=== PATIENT | male | born 1945 | race Caucasian/White ===

== ENCOUNTER 2016-06-20 12:15 | Emergency (ER) | payer MEDICARE, OTHER ==
[~2016-06-20] VITALS: Ht 172.7 cm; Wt 86.0 kg
[2016-06-20 12:39] VITALS: BP 180/88; PULSE 75; RESP 16; TEMP 98.4; O2SAT 97
[2016-06-20 13:15] LABS: AUTOMATED NEUTROPHIL # 3.6 TH/MM3 (1.8-7.7); BASOPHIL % 0.5 % (0.0-2.0); EOSINOPHIL # 0.2 TH/MM3 (0-0.4); EOSINOPHIL % 2.8 % (0.0-4.0); HEMATOCRIT 43.9 % (39.0-51.0); HEMO FLAGS DIFF FINAL; LYMPH % 25.2 % (9.0-44.0); LYMPHOCYTE # 1.5 TH/MM3 (1.0-4.8); MEAN CELL VOLUME 91.4 FL (80.0-100.0); MEAN CORPUSCULAR HEMOGLOBIN 30.4 PG (27.0-34.0); MEAN CORPUSCULAR HGB CONC 33.3 % (32.0-36.0); NEUT % 58.5 % (16.0-70.0); PLATELET COUNT 188 TH/MM3 (150-450); RED CELL DISTRIBUTION WIDTH 12.8 % (11.6-17.2); WHITE BLOOD COUNT 6.1 TH/MM3 (4.0-11.0)
[2016-06-20 13:26] LABS: CHLORIDE 102 MEQ/L (98-107); SODIUM (NA) 139 MEQ/L (136-145)
[2016-06-20 13:28] LABS: ANION GAP 8 MEQ/L (5-15); BICARBONATE 29.4 MEQ/L (21.0-32.0); BLOOD UREA NITROGEN 16 MG/DL (7-18)
[2016-06-20 13:32] LABS: GLOMERULAR FILTRATION RATE 80 ML/MIN (>89)
[2016-06-20 13:45] VITALS: BP 186/82; PULSE 63; RESP 16; O2SAT 95
--- NOTE | 2016-06-20 13:59 | PD ---
HPI Chief Complaint: Dizziness Time Seen by Provider: 12:43 Travel History International Travel<30 days: No Contact w/Intl Traveler<30days: No Traveled to known affect area: No History of Present Illness HPI 70yo M with PMH of HTN presents to the ED with c/o feeling unsteady and lightheaded for a few days. Pt states when he walks, he feels that he will fall but does not. Denies any fever, visual changes, chest pain, sob, n/v, abdominal pain, focal weakness or numbness. PFSH Past Medical History Cardiovascular Problems: Yes (HTN) High Cholesterol: Yes Chemotherapy: No Cerebrovascular Accident: No Diabetes: No Diminished Hearing: No Hypertension: Yes Respiratory: No Tetanus Vaccination: > 5 Years Past Surgical History Joint Replacement: Yes Tonsillectomy: Yes Social History Alcohol Use: Yes (BEER, OCCASIONALLY; 3 BEERS 06/17/16) Tobacco Use: No (QUIT ) Substance Use: No Allergies-Medications (Allergen,Severity, Reaction): Coded Allergies: No Known Allergies (Unverified , 06/20/16) Review of Systems Except as stated in HPI: all other systems reviewed are Neg Physical Exam Narrative GENERAL: 70yo M not in distress. SKIN: Warm and dry. HEAD: Atraumatic. Normocephalic. EYES: Pupils equal and round. No nystagmus. EOMI. No scleral icterus. No injection or drainage. ENT: +Cerumen in bilateral ears. Unable to visualize TM. No nasal bleeding or discharge. Mucous membranes pink and moist. NECK: Trachea midline. No JVD. CARDIOVASCULAR: Regular rate and rhythm. No murmur appreciated. RESPIRATORY: No accessory muscle use. Clear to auscultation. Breath sounds equal bilaterally. GASTROINTESTINAL: Abdomen soft, non-tender, nondistended. Hepatic and splenic margins not palpable. MUSCULOSKELETAL: No obvious deformities. No clubbing. No cyanosis. No edema. NEUROLOGICAL: Awake and alert. No obvious cranial nerve deficits. Motor grossly within normal limits. Normal speech. PSYCHIATRIC: Appropriate mood and affect; insight and judgment normal. Data Data Last Documented VS Vital Signs Date Time Temp Pulse Resp B/P Pulse Ox O2 Delivery O2 Flow Rate FiO2 06/20/16 13:45 63 16 186/82 95 Room Air 06/20/16 12:39 98.4 Orders Complete Blood Count With Diff (06/20/16 13:03) Basic Metabolic Panel (Bmp) (06/20/16 13:03) Troponin I (06/20/16 13:03) Ct Brain W/O Iv Contrast(Rout) (06/20/16 ) Labs Laboratory Tests Test 06/20/16 13:10 White Blood Count 6.1 TH/MM3 Red Blood Count 4.80 MIL/MM3 Hemoglobin 14.6 GM/DL Hematocrit 43.9 % Mean Corpuscular Volume 91.4 FL Mean Corpuscular Hemoglobin 30.4 PG Mean Corpuscular Hemoglobin 33.3 % Concent Red Cell Distribution Width 12.8 % Platelet Count 188 TH/MM3 Mean Platelet Volume 6.2 FL Neutrophils (%) (Auto) 58.5 % Lymphocytes (%) (Auto) 25.2 % Monocytes (%) (Auto) 13.0 % Eosinophils (%) (Auto) 2.8 % Basophils (%) (Auto) 0.5 % Neutrophils # (Auto) 3.6 TH/MM3 Lymphocytes # (Auto) 1.5 TH/MM3 Monocytes # (Auto) 0.8 TH/MM3 Eosinophils # (Auto) 0.2 TH/MM3 Basophils # (Auto) 0.0 TH/MM3 CBC Comment DIFF FINAL Differential Comment Sodium Level 139 MEQ/L Potassium Level 4.0 MEQ/L Chloride Level 102 MEQ/L Carbon Dioxide Level 29.4 MEQ/L Anion Gap 8 MEQ/L Blood Urea Nitrogen 16 MG/DL Creatinine 0.93 MG/DL Estimat Glomerular Filtration 80 ML/MIN Rate Random Glucose 103 MG/DL Calcium Level 8.8 MG/DL Troponin I LESS THAN 0.02 NG/ML MDM Medical Decision Making Medical Screen Exam Complete: Yes Emergency Medical Condition: Yes Interpretation(s) EKG: NSR 74bpm. Normal axis. QTc 390ms. Q wave III. Differential Diagnosis Electrolyte abnormality vs. peripheral vertigo vs. posterior stroke vs. arrhythmia Narrative Course 70yo M with c/o feeling unsteady on his feet for a few days. Pt has normal gait and normal neuro exam. Denies feeling spinning or nausea. Labs reviewed, no leukocytosis. Troponin negative. BMP unremarkable. Pt states he does not want to wait for the CT brain because it is down right now. Pt feels fine and wants to go home without the CT brain. He states he will follow up with PMD and return to the ED if symptoms worsen. AMA: The risks of leaving against medical advice without further evaluation treatment were discussed with the patient. These risks include cardiac dysfunction, cardiac dysrhythmia, possible heart attack, possible stroke or . The patient indicated understanding of these risks and appeared to have the capacity to make this decision. Diagnosis Primary Impression: Dizziness Patient Instructions: General Instructions Departure Forms: Tests/Procedures Additional Instructions: Please follow up with your PMD in 3-7 days. Return to the ED if symptoms worsen. Med/Other Pt SpecificInfo: No Change to Meds Disposition: 07 AGAINST MEDICAL ADVICE Condition: Stable Monica Odell Jun 20, 2016 13:59
[2016-06-20 14:45] VITALS: BP 172/79; PULSE 63; RESP 16; O2SAT 97
--- NOTE | 2016-06-21 17:18 | EKG ---
Date Performed: 06/20/2016 Time Performed: 12:25:28 PTAGE: 70 years EKG: Sinus rhythm Normal ECG NO PREVIOUS TRACING DOCTOR: Mindy Randolph Interpretating Date/Time 06/21/2016 17:15:12
== END 2016-06-20 14:56 | disposition left against medical advice (07) ==
LOC: PHED 12:15
DX: R42 Dizziness and giddiness (principal); I10 Essential (primary) hypertension; E78.00 Pure hypercholesterolemia, unspecified; H61.23 Impacted cerumen, bilateral
CPT/HCPCS: 80048; 84484; 85025; 93005; 99284